=== PATIENT | female | born 1985 | race Caucasian/White ===

== ENCOUNTER 2017-09-30 12:48 | Outpatient (CLI) | payer OTHER | END 2017-09-30 13:03 | disposition home or self-care (01) | LOC: LAB 12:48 | DX: E06.9 Thyroiditis, unspecified (principal) ==

== ENCOUNTER → 2017-09-30 | Outpatient (CLI) | payer OTHER | END | disposition home or self-care (01) | LOC: PPHC LAB 11:48 | DX: Z02.0 Encounter for examination for admission to educational institution (principal) ==

== ENCOUNTER → 2020-02-28 15:00 | Outpatient (CLI) | payer OTHER | END | disposition home or self-care (01) | LOC: PPH VACUNA 15:00 | DX: Z23 Encounter for immunization (principal) ==

== ENCOUNTER → 2020-10-25 09:10 | Outpatient (CLI) | payer OTHER | END | disposition home or self-care (01) | LOC: LAB 09:10 | PROVIDERS: ATTEND General Practice | DX: Z20.828 Contact with and (suspected) exposure to other viral communicable diseases (principal) ==

== ENCOUNTER 2021-03-05 08:00 | Outpatient (CLI) | payer OTHER | END 2021-03-05 08:05 | disposition home or self-care (01) | LOC: PPH VACUNA 08:00 | PROVIDERS: ATTEND Emergency Medicine Pediatric Emergency Medicine | DX: Z23 Encounter for immunization (principal) ==

== ENCOUNTER 2021-05-27 08:01 | Outpatient (CLI) | payer OTHER | END 2021-05-27 08:18 | disposition home or self-care (01) | LOC: LAB 08:01 | PROVIDERS: ATTEND Emergency Medicine Pediatric Emergency Medicine | DX: Z20.822 Contact with and (suspected) exposure to COVID-19 (principal) ==

== ENCOUNTER 2021-05-29 09:30 | Outpatient (CLI) | payer OTHER | END 2021-05-29 10:30 | disposition home or self-care (01) | LOC: ASH CLINIC 09:30 | PROVIDERS: ATTEND Emergency Medicine | DX: U07.1 COVID-19 (principal); Z23 Encounter for immunization ==

== ENCOUNTER 2021-11-14 10:25 | Outpatient (CLI) | payer OTHER | END 2021-11-14 10:30 | disposition home or self-care (01) | LOC: SONOGRAMA 10:25 | PROVIDERS: ATTEND Emergency Medicine | DX: R22.1 Localized swelling, mass and lump, neck (principal) ==

== ENCOUNTER 2022-08-07 11:02 | Inpatient (IN) | payer OTHER ==
[~2022-08-07] VITALS: Ht 157.5 cm; Wt 77.1 kg
[2022-08-12] MEDS ORDERED: PRENATAL TABLE1 EAC1 PO (16:01)
== END 2022-08-15 11:29 | disposition home or self-care (01) | DRG 807 ==
LOC: LDR 08-12 13:16 → OB/GYN 08-13 14:41
PROVIDERS: ADMIT Obstetrics & Gynecology; ATTEND Obstetrics & Gynecology
PROC: 4A1HXCZ Monitoring of Products of Conception, Cardiac Rate, External Approach (ICD-10-PCS; 2022-08-12)
PROC: 10E0XZZ Delivery of Products of Conception, External Approach (ICD-10-PCS; principal; 2022-08-13)
PROC: 0KQM0ZZ Repair Perineum Muscle, Open Approach (ICD-10-PCS; 2022-08-13)
DX: O70.1 Second degree perineal laceration during delivery (principal); Z37.0 Single live birth; Z3A.39 39 weeks gestation of pregnancy; Z20.822 Contact with and (suspected) exposure to COVID-19

== ENCOUNTER 2022-08-07 12:14 | Outpatient (CLI) | payer OTHER | END 2022-08-07 12:33 | disposition home or self-care (01) | LOC: NST 12:14 | PROVIDERS: ATTEND Obstetrics & Gynecology Maternal & Fetal Medicine | DX: Z34.83 Encounter for supervision of other normal pregnancy, third trimester (principal) ==

== ENCOUNTER 2022-08-22 07:02 | Emergency (ER) | payer OTHER ==
[~2022-08-22] VITALS: Ht 157.5 cm; Wt 74.4 kg
[~2022-08-22 07:02] MED LIST: PRENATAL TABLE1 EAC1 PO
[2022-08-22] MEDS ORDERED: SYNTHROID50 MCG PO (07:11)
== END 2022-08-22 10:18 | disposition home or self-care (01) ==
LOC: ER 07:02
DX: R07.89 Other chest pain (principal)

== ENCOUNTER 2022-08-22 11:21 | Inpatient (IN) | payer OTHER ==
[~2022-08-22] VITALS: Ht 157.5 cm; Wt 74.4 kg
[~2022-08-22 11:21] MED LIST changes: +SYNTHROID50 MCG PO
== END 2022-08-25 14:24 | disposition home or self-care (01) | DRG 776 ==
LOC: LDR 11:21 → O/R 08-23 10:40 → LDR 08-23 10:41 → OB/GYN 08-23 11:21
PROVIDERS: ADMIT Obstetrics & Gynecology Gynecology; ATTEND Obstetrics & Gynecology Gynecology
PROC: BW40ZZZ Ultrasonography of Abdomen (ICD-10-PCS; principal; 2022-08-23)
PROC: BF37ZZZ Magnetic Resonance Imaging (MRI) of Pancreas (ICD-10-PCS; 2022-08-24)
DX: O16.5 Unspecified maternal hypertension, complicating the puerperium (principal); Z20.822 Contact with and (suspected) exposure to COVID-19

== ENCOUNTER 2023-04-01 06:57 | Day surgery (SDC) | payer OTHER ==
[2023-03-26 12:28] LABS: PH,URINE 6.5 (5.0-8.0); URINE APPEARANCE Clear; URINE BILIRRUBIN Negative (NEGATIVE); URINE BLOOD Negative; URINE COLOR Yellow; URINE GLUCOSE Negative (NEGATIVE); URINE LEUKOCYTE Negative; URINE NITRATE Negative; URINE PROTEIN Negative (NEGATIVE)
[2023-03-26 12:29] LABS: HEMATOCRIT 39.5 % (36.0-45.00); HEMOGLOBIN 13.1 g/dL (12.0-15.00); MEAN CELL VOLUME 81.1 fL (80.00-100.00); MEAN CORPUSCULAR HGB CONC 33.3 g/dl (32.0-36.0); PLATELET COUNT 229 K/uL (150-450); RED BLOOD COUNT 4.87 M/uL (4.00-6.00); RED CELL DISTRIBUTION WIDTH 15.1 % (11.5-14.5)
[2023-03-26 12:31] LABS: URINE BACTERIA 404.3 uL (0.0-1933); URINE EPITHELIAL CELLS 14.5 uL (0.0-38.8); URINE WBC 6.7 uL (0.0-23.2)
[2023-03-26 12:51] LABS: INR 1.07; PARTIAL THROMBOPLASTIN TIME 30.1 SECONDS (22.0-34.0); PROTHROMBIN TIME 11.2 SECONDS (9.0-11.5)
[2023-03-26 12:53] LABS: CALCIUM 8.5 mg/dL (8.5-10.1); CREATININE SERUM 0.66 mg/dL (0.55-1.02); GFR 101.91; POTASSIUM 3.74 mEq/L (3.5-5.1)
[~2023-04-01] VITALS: Ht 157.5 cm; Wt 62.1 kg
[2023-04-01] MEDS ORDERED: PERCOCET 5-3251 EACH PO (12:56)
== END 2023-04-01 15:35 | disposition home or self-care (01) ==
LOC: CIR.AMB 06:57
PROVIDERS: ATTEND Surgery
DX: K80.10 Calculus of gallbladder with chronic cholecystitis without obstruction (principal); Z20.822 Contact with and (suspected) exposure to COVID-19; E03.9 Hypothyroidism, unspecified

== ENCOUNTER 2025-01-06 11:36 | Outpatient (CLI) | payer OTHER ==
[~2025-01-06 11:36] MED LIST changes: +PERCOCET 5-3251 EACH PO
== END 2025-01-06 11:38 | disposition home or self-care (01) ==
LOC: SONOGRAMA 11:36
PROVIDERS: ATTEND Internal Medicine Endocrinology, Diabetes & Metabolism
DX: E04.2 Nontoxic multinodular goiter (principal)

== ENCOUNTER 2025-01-26 08:09 | Outpatient (CLI) | payer OTHER | END 2025-01-26 08:15 | disposition home or self-care (01) | LOC: SONOGRAMA 08:09 | PROVIDERS: ATTEND Pathology Anatomic Pathology & Clinical Pathology | DX: E04.2 Nontoxic multinodular goiter (principal) ==